=== PATIENT | female | born 1955 | race Caucasian/White ===

== ENCOUNTER 2024-07-26 23:56 | Inpatient (IN) | payer MEDICARE, MEDICAID, SELFPAY ==
--- NOTE | ~2024-07-26 | CT_ITS ---
Clinical Indication: Shortness of breath, atrial fibrillation CT Scan of the Chest with Contrast: Technique: Contiguous sections were acquired throughout the chest after intravenous administration of 100 cc of Omnipaque 350. Dose reduction technique was used on this scan by utilizing automated expos ure control and iterative reconstruction technique. The dose-length product (DLP) was 478.28 mGy-cm. Findings: There is no evidence of any significant mediastinal, hilar or axillary lymphadenopathy. There is no f illing defect in the pulmonary arterial tree to suggest pulmonary embolus. There is no evidence of ao rtic dissection or aneurysm. No pericardial effusion. There are moderate bilateral pleural effusions. There is minimal bibasilar atelectasis. There is diff use interstitial thickening, compatible with interstitial pulmonary edema.. Images through the upper abdomen reveal no abnormalities. Impression: No evidence of pulmonary embolus, aortic dissection, or aortic aneurysm. Moderate bilateral pleural effusions with diffuse interstitial pulmonary edema. Reviewed, dictated and finalized at [facility]. Impression: No evidence of pulmonary embolus, aortic dissection, or aortic aneurysm. Moderate bilateral pleural effusions with diffuse interstitial pulmonary edema.
--- NOTE | ~2024-07-26 | XR_ITS ---
Portable chest x-ray Comparison: None Clinical History: Shortness of breath Findings: Probable mild central congestive change and mild interstitial edema. Small bilateral pleur al effusions are present. Cardiomediastinal silhouette is prominent. Bones and soft tissues are unre markable. Impression: Small pleural effusions with mild pulmonary edema pattern. Mild cardiomegaly. Reviewed, dictated and finalized at [facility]. Impression: Small pleural effusions with mild pulmonary edema pattern. Mild cardiomegaly.
[2024-07-26 23:51] VITALS: BP 138/87; PULSE 130; RESP 16; TEMP 36.4; O2SAT 97
[2024-07-27] VITALS (33 sets, daily range): BP systolic 108–143; BP diastolic 50–99; PULSE 79–154; RESP 14–26; TEMP 36.5–36.9; O2SAT 93–99; BMI 32.4
--- NOTE | 2024-07-27 | ECG_ITS ---
Test Date: 2024-07-27 00:04:13 Measurements Intervals [place] Rate: 144 P: 0 AK: 0 QRS: -5 QRSD: 97 T: -25 QT: 311 QTc: 482 Interpretive Statements ATRIAL FIBRILLATION WITH RAPID VENTRICULAR RESPONSE NONSPECIFIC ST & T-WAVE ABNORMALITY ABNORMAL RHYTHM ECG No previous ECG available for comparison Electronically Signed On 07-27-2024 12:42:36 CDT by Reggie Hill M.D.
--- NOTE | 2024-07-27 00:15 | ED_ITS ---
HPI - Arrhythmia/Palpitations General Chief Complaint: Arrhythmia/Palpitations <Florina Bella PA-C - Last Filed: 07/27/24 17:14> Stated Complaint: PALPITATIONS, A-FIB W/ RVR, SOB <Florina Bella PA-C - Last Filed: 07/27/24 17:14> Time Seen by Provider: 07/27/24 00:06 <Florina Bella PA-C - Last Filed: 07/27/24 17:14> Source: patient <JULITO Hernandez Last Filed: 07/27/24 17:14> Mode of arrival: ambulatory <JULITO Hernandez Last Filed: 07/27/24 17:14> Limitations: no limitations <Florina Bella PA-C - Last Filed: 07/27/24 17:14> History of Present Illness HPI narrative: This is a 69 year old female that presents to the ER for shortness of breath, lower extremity edema. Reports she has been traveling internationally. She has had worsening lower extremity edema, shortness of breath, feels like she is full of fluid. Reports history of afib. She does currently take a blood thinner. She is not on any rate controlling medications. She denies any chest pain. <Florina Bella PA-C - Last Filed: 07/27/24 17:14> Related Data Home Medications: Home Medications ?Medication ?Instructions ?Recorded ?Confirmed ?Last Taken ?Type Paracetamol/codeine PRN pain 07/27/24 Unknown History apixaban 5 mg tablet (Eliquis) 5 mg PO BID 07/27/24 07/27/24 Unknown History candesartan 16 mg tablet 16 mg PO HS 07/27/24 07/27/24 Unknown History furosemide 40 mg tablet 40 mg PO DAILY PRN swelling 07/27/24 07/27/24 07/26/24 History pantoprazole 40 mg tablet,delayed 40 mg PO QAM 07/27/24 07/27/24 Unknown History release (Protonix) <JULITO Hernandez Last Filed: 07/27/24 17:14> Allergies/Adverse Reactions: Allergies Allergy/AdvReac Type Severity Reaction Status Date / Time Penicillins Allergy Rash Verified 07/27/24 00:28 <Florina Bella PA-C - Last Filed: 07/27/24 17:14> Review of Systems 2 Review of Systems: All systems reviewed & are unremarkable except as noted in HPI and below <Florina Bella PA-C - Last Filed: 07/27/24 17:14> [facility] Past Medical History Medical History: Medical History History of hypertension History of gastroesophageal reflux (GERD) History of atrial fibrillation <Florina Bella PA-C - Last Filed: 07/27/24 17:14> Social History Social History: Social History Years smoked: 35 Smoking status: Former smoker Alcohol intake: never Substance use: never Substance use type: does not use Do You Feel Safe in your Home?: Yes Lack of Transportation: No Lack of Food: Never True Current Housing: I Have Housing Concerned About Future Housing: No Difficulty Paying Gas/Electric Bills: No Difficulty Paying for Meds: No Currently Unemployed: No Education: Decline to Answer Difficulty w/ Childcare or Family Care: No Spiritual care concerns: No <Florina Bella PA-C - Last Filed: 07/27/24 17:14> Exam 2 Narrative: GENERAL: Well-appearing, well-nourished, and in no acute distress. HEAD: Normocephalic, atraumatic. EYES: PERRLA and EOMI. ENT: Nares clear, no rhinorrhea or epistaxis. Mucous membranes moist. Oropharynx without tonsillar hypertrophy exudate or other lesions. NECK: Supple. No adenopathy or masses. CHEST: No respiratory distress. Rales in the lower lobes. No wheezes or rhonchi HEART: Irregularly irregular. No murmur heard. Normal peripheral pulses. EXTREMITIES: Normal range of motion. Nonpitting edema to the lower extremities SKIN: Warm, dry, no rash. NEURO: No focal deficits. Alert and oriented x3. PSYCH: Normal mood and affect <Florina Bella PA-C - Last Filed: 07/27/24 17:14> Course Course Emergency Course: Patient updated on workup thus far. Care taken over by Dr. Ledesma at shift change <Florina Bella PA-C - Last Filed: 07/27/24 17:14> Vital Signs Vital signs: Vital Signs Temperature 97.5 F L 07/26/24 23:51 Pulse Rate 130 H 07/26/24 23:51 Respiratory Rate 16 07/26/24 23:51 Blood Pressure 138/87 07/26/24 23:51 Pulse Oximetry 97 07/26/24 23:51 Oxygen Delivery Room Air 07/26/24 23:51 Temperature 98 F 07/27/24 16:00 Pulse Rate 106 H 07/27/24 16:00 Respiratory Rate 18 07/27/24 16:00 Blood Pressure 113/83 07/27/24 16:00 Pulse Oximetry 96 07/27/24 16:00 Oxygen Delivery Room Air 07/27/24 11:26 <Florina Bella PA-C - Last Filed: 07/27/24 17:14> Vital Signs Temperature 97.5 F L 07/26/24 23:51 Pulse Rate 130 H 07/26/24 23:51 Respiratory Rate 16 07/26/24 23:51 Blood Pressure 138/87 07/26/24 23:51 Pulse Oximetry 97 07/26/24 23:51 Oxygen Delivery Room Air 07/26/24 23:51 Temperature 98 F 07/27/24 16:00 Pulse Rate 106 H 07/27/24 16:00 Respiratory Rate 18 07/27/24 16:00 Blood Pressure 113/83 07/27/24 16:00 Pulse Oximetry 96 07/27/24 16:00 Oxygen Delivery Room Air 07/27/24 11:26 <Eileen Ledesma MD - Last Filed: 07/27/24 05:42> MDM - Arrhythmia/Palpitations MDM Narrative Medical decision making narrative: Patient signed out to me pending interpretation of CTA. No PE. Findings as below. Patient remains on diltiazem drip and in general has been rate controlled less than 110 intermittently low 120s. Slightly tearful on exam, explaining that she has been in rate controlled asymptomatic afib for years. A lot of stressors recently (terminally ill , best friend recently , twin grandbabies just , etc) but that she had visited her PCP before leaving on her trip and been cleared to travel. Otherwise stable. Patient had been discussed with CYRUS Olivier Juárez prior to CT result. Bed orders for IMU telemetry are placed. <Eileen Ledesma MD - Last Filed: 07/27/24 05:42> Differential Diagnosis Differential diagnosis: Likely palpitations, sinus tachycardia, artial fibrillation, artial flutter and other (PE, CHF) <Florina Bella PA-C - Last Filed: 07/27/24 17:14> Lab Data Attestation: I reviewed the patient's lab results. <Florina Bella PA-C - Last Filed: 07/27/24 17:14> Result diagrams: 07/27/24 00:08 07/27/24 00:09 <Florina Bella PA-C - Last Filed: 07/27/24 17:14> Labs: Lab Results 07/27/24 07/27/24 07/27/24 Range/Units 00:08 00:09 00:42 WBC 8.1 (4.5-10.0) K/mm3 RBC 4.04 L (4.2-5.4) M/mm3 Hgb 10.7 L (12.0-15.0) g/dL Hct 34.1 L (37.0-47.0) % MCV 84.4 (80-100) fl MCH 26.5 (26-34) pg MCHC 31.4 L (32-36) g/dl RDW 15.2 H (11.5-14.5) % Plt Count 262 (150-375) k/mm3 MPV 11.2 H (7.4-10.4) fl Immature Gran % (Auto) 1.0 H (0-0.5) % Neut % (Auto) 60.4 (45.5-73.1) % Lymph % (Auto) 29.9 (18.3-44.2) % [place] % (Auto) 6.5 (2.6-8.5) % Eos % (Auto) 1.7 (0-4.4) % Baso % (Auto) 0.5 (0.2-1.2) % Lymph # (Auto) 2.41 (0.9-3.2) K/mm3 [place] # (Auto) 0.5 (0.1-0.6) K/mm3 Eos # (Auto) 0.1 (0-0.3) K/mm3 Baso # (Auto) 0.0 (0.0-0.1) K/mm3 Abs Immat Gran (auto) 0.08 H (0.00-0.031) K/mm3 Absolute Neuts (auto) 4.9 (1.3-6.7) K/mm3 Absolute Nucleated RBC 0.000 (0.0-0.012) K/mm3 Nucleated RBC % 0.0 (0.0-0.2) % PT 16.3 H (11.1-14.7) Seconds INR 1.3 APTT 34.3 (22.3-36.8) Seconds Sodium 141 (137-145) mmol/L Potassium 3.4 (3.4-5.0) mmol/L Chloride 108 H (98-107) mmol/L Carbon Dioxide 24 (22-30) mmol/L Anion Gap 9 (4-12) mmol/L BUN 20 H (7-17) mg/dL Creatinine 0.84 (0.7-1.0) mg/dL Estim Creat Clear Calc 67 ml/min Estimated GFR > 60 (59 - ) Glucose 122 H (65-110) mg/dL Calcium 8.9 (8.4-10.2) mg/dL Total Bilirubin 0.6 (0.2-1.3) mg/dL AST 34 (14-36) U/L ALT 21 (6-35) U/L Alkaline Phosphatase 81 (38-126) U/L NT-Pro-B Natriuret Pep 8160 H (19.9-100) pg/mL Total Protein 7.0 (6.3-8.2) g/dL Albumin 4.1 (3.5-5.1) g/dL <Florina Bella PA-C - Last Filed: 07/27/24 17:14> Lab Results 07/27/24 07/27/24 07/27/24 Range/Units 00:08 00:09 00:42 WBC 8.1 (4.5-10.0) K/mm3 RBC 4.04 L (4.2-5.4) M/mm3 Hgb 10.7 L (12.0-15.0) g/dL Hct 34.1 L (37.0-47.0) % MCV 84.4 (80-100) fl MCH 26.5 (26-34) pg MCHC 31.4 L (32-36) g/dl RDW 15.2 H (11.5-14.5) % Plt Count 262 (150-375) k/mm3 MPV 11.2 H (7.4-10.4) fl Immature Gran % (Auto) 1.0 H (0-0.5) % Neut % (Auto) 60.4 (45.5-73.1) % Lymph % (Auto) 29.9 (18.3-44.2) % [place] % (Auto) 6.5 (2.6-8.5) % Eos % (Auto) 1.7 (0-4.4) % Baso % (Auto) 0.5 (0.2-1.2) % Lymph # (Auto) 2.41 (0.9-3.2) K/mm3 [place] # (Auto) 0.5 (0.1-0.6) K/mm3 Eos # (Auto) 0.1 (0-0.3) K/mm3 Baso # (Auto) 0.0 (0.0-0.1) K/mm3 Abs Immat Gran (auto) 0.08 H (0.00-0.031) K/mm3 Absolute Neuts (auto) 4.9 (1.3-6.7) K/mm3 Absolute Nucleated RBC 0.000 (0.0-0.012) K/mm3 Nucleated RBC % 0.0 (0.0-0.2) % PT 16.3 H (11.1-14.7) Seconds INR 1.3 APTT 34.3 (22.3-36.8) Seconds Sodium 141 (137-145) mmol/L Potassium 3.4 (3.4-5.0) mmol/L Chloride 108 H (98-107) mmol/L Carbon Dioxide 24 (22-30) mmol/L Anion Gap 9 (4-12) mmol/L BUN 20 H (7-17) mg/dL Creatinine 0.84 (0.7-1.0) mg/dL Estim Creat Clear Calc 67 ml/min Estimated GFR > 60 (59 - ) Glucose 122 H (65-110) mg/dL Calcium 8.9 (8.4-10.2) mg/dL Total Bilirubin 0.6 (0.2-1.3) mg/dL AST 34 (14-36) U/L ALT 21 (6-35) U/L Alkaline Phosphatase 81 (38-126) U/L NT-Pro-B Natriuret Pep 8160 H (19.9-100) pg/mL Total Protein 7.0 (6.3-8.2) g/dL Albumin 4.1 (3.5-5.1) g/dL <Eileen Ledesma MD - Last Filed: 07/27/24 05:42> Imaging Data Radiologist's impression: CTA chest PE: No pulmonary embolus. No aortic aneurysm or dissection. There is dilation of the pulmonary arteries concerning for pulmonary hypertension. Additionally, there is ectasia of the ascending or DA measuring 3.7 cm. Diffuse intraseptal thickening is concerning for pulmonary edema. Moderate pleural effusions. Cardiomegaly. No pathologically enlarged lymph nodes. No fracture. Small hiatal hernia. No incidental findings. <Florina Bella PA-C - Last Filed: 07/27/24 17:14> No pulmonary embolus. No aortic aneurysm or dissection. There is dilation of the pulmonary arteries concerning for pulmonary hypertension. Additionally, there is ectasia of the ascending or DA measuring 3.7 cm. Diffuse intraseptal thickening is concerning for pulmonary edema. Moderate pleural effusions. Cardiomegaly. No pathologically enlarged lymph nodes. No fracture. Small hiatal hernia. No incidental findings. <Eileen Ledesma MD - Last Filed: 07/27/24 05:42> ECG Data EKG #1: ECG completion date: 07/27/24 <Florina Bella PA-C - Last Filed: 07/27/24 17:14> EKG Interpretation: atrial fibrillation (with RVR) <JULITO Hernandez Last Filed: 07/27/24 17:14> Critical Care Time Critical Care Time Critical Care Time: Yes <Florina Bella PA-C - Last Filed: 07/27/24 17:14> Total Critical Care Time: 35 <Florina Bella PA-C - Last Filed: 07/27/24 17:14> Discharge Plan Discharge Clinical Impression: Atrial fibrillation with rapid ventricular response <Florina eBlla PA-C - Last Filed: 07/27/24 17:14> Patient Disposition: Still a Patient <Florina Bella PA-C - Last Filed: 07/27/24 17:14> Condition: Stable <Florina Bella PA-C - Last Filed: 07/27/24 17:14> Time of Disposition: 05:42 <Florina Bella PA-C - Last Filed: 07/27/24 17:14> 05:42 <Eileen Ledesma MD - Last Filed: 07/27/24 05:42>
[2024-07-27 00:24] LABS: Alanine Aminotransferase 21 U/L (6-35); Albumin Level 4.1 g/dL (3.5-5.1); Alkaline Phosphatase 81 U/L (38-126); Anion Gap 9 mmol/L (4-12); Aspartate Amino Transferase 34 U/L (14-36); Bilirubin,Total 0.6 mg/dL (0.2-1.3); Blood Urea Nitrogen 20 mg/dL (7-17); Calcium 8.9 mg/dL (8.4-10.2); Carbon Dioxide 24 mmol/L (22-30); Chloride 108 mmol/L (98-107); Estimated CRCL calculation 67 ml/min; Estimated Glomerular Filt Rate > 60; Glucose 122 mg/dL (65-110); Potassium 3.4 mmol/L (3.4-5.0); Sodium 141 mmol/L (137-145)
[2024-07-27] MEDS: FUROSEMIDE INJ 40 MG/4 ML VIAL IV PUSH (00:29)
[2024-07-27 00:33] LABS: Basophils Percent Auto 0.5 % (0.2-1.2); Eosinophils Absolute Auto 0.1 K/mm3 (0-0.3); Eosinophils Percent Auto 1.7 % (0-4.4); Hematocrit 34.1 % (37.0-47.0); Hemoglobin 10.7 g/dL (12.0-15.0); Immature Granulocyte Absolute 0.08 K/mm3 (0.00-0.031); Lymphocytes Absolute Auto 2.41 K/mm3 (0.9-3.2); Lymphocytes Percent Auto 29.9 % (18.3-44.2); Mean Corpuscular HGB Conc 31.4 g/dl (32-36); Mean Corpuscular Hemoglobin 26.5 pg (26-34); Mean Corpuscular Volume 84.4 fl (80-100); Mean Platelet Volume 11.2 fl (7.4-10.4); Monocytes Absolute Auto 0.5 K/mm3 (0.1-0.6); Monocytes Percent Auto 6.5 % (2.6-8.5); Neutrophils Absolute Auto 4.9 K/mm3 (1.3-6.7); Neutrophils Percent Auto 60.4 % (45.5-73.1); Platelet Count Result 262 k/mm3 (150-375); Red Blood Count 4.04 M/mm3 (4.2-5.4); Red Cell Distribution Width 15.2 % (11.5-14.5); White Blood Count 8.1 K/mm3 (4.5-10.0)
[2024-07-27] MEDS: dilTIAZem HCl INJ 25 MG/5 ML VIAL 10 MG IV PUSH ×2 (00:34→02:02)
[2024-07-27 00:36] LABS: NT Pro B Type Natriuretic Pept 8160 pg/mL (19.9-100)
[2024-07-27] MEDS: dilTIAZem 100 MG/100 ML 100 MG/100 ML BAG IV CONT (00:39)
[2024-07-27] MEDS: Please add drug allergy info to patient profile. 1 EACH XX (00:41)
[2024-07-27 01:04] LABS: INR 1.3; Prothrombin Time 16.3 Seconds (11.1-14.7)
[2024-07-27 01:05] LABS: Partial Thromboplastin Time 34.3 Seconds (22.3-36.8)
--- NOTE | 2024-07-27 06:58 | ADMGEN ---
This patient, Leanna Tillman, was admitted to IMU Room 205-01. Patient/family oriented to hospital policies and general routines including ID bracelet, bed and alarms, visiting hours, pain management, procedures, bathroom and other care routines, personal items, smoking policy, room service/diet, and visiting hours. Information on how to activate the Rapid Response Team has been discussed. Patient/Family are encouraged to report perceived risks to care and to ask questions if they do not understand what they are told or what they should do.
--- NOTE | 2024-07-27 08:14 | P.HP_ITS ---
H&P: HPI History of Present Illness Date/Time: 07/27/24 08:14 Chief Complaint: Palpitation Narrative: 69-year-old female with a past medical history of hypertension, GERD, AFib presented to ER due to shortness of breath, lower extremity edema. As per ED records patient was traveling internationally and experienced worsening of lower extremity edema, shortness of breath. Pertinent ED labs: WBC 8.1, hemoglobin 10.7, MCV 84.4, platelet 262, sodium 141, potassium 3.4, chloride 108, creatinine 0.8, glucose 122 BNP 8160 TSH pending Patient is admitted in the setting of AFib with RVR. Ordered TSH and echoc ardiogram. Cardiology consulted and appreciate recommendation. Patient lives in [place] and was visiting [place]. While driving from [place] patient felt her ankles were swollen and heart was racing for which she immediately seek care in ED. Patient reports in [place] she had multiple cardioversion. She reports recently had Echocardiogram in March 2024 and her PCP reported it was normal. Lately she endorse lot of stress due to illness, grand babies and closed friend . Review of Systems Review of Systems: All systems reviewed & are unremarkable except as noted in HPI and below PMFSH Past Medical History Medical History History of hypertension History of gastroesophageal reflux (GERD) History of atrial fibrillation Social History Social History Years smoked: 35 Smoking status: Former smoker Alcohol intake: never Substance use: never Substance use type: does not use Do You Feel Safe in your Home?: Yes Lack of Transportation: No Lack of Food: Never True Current Housing: I Have Housing Concerned About Future Housing: No Difficulty Paying Gas/Electric Bills: No Difficulty Paying for Meds: No Currently Unemployed: No Education: Decline to Answer Difficulty w/ Childcare or Family Care: No Spiritual care concerns: No Meds Home Medications and Allergies Home Medications ?Medication ?Instructions ?Recorded ?Confirmed ?Type Paracetamol/codeine PRN pain 07/27/24 History apixaban 5 mg tablet (Eliquis) 5 mg PO BID 07/27/24 07/27/24 History candesartan 16 mg tablet 16 mg PO HS 07/27/24 07/27/24 History furosemide 40 mg tablet 40 mg PO DAILY PRN swelling 07/27/24 07/27/24 History pantoprazole 40 mg tablet,delayed 40 mg PO QAM 07/27/24 07/27/24 History release (Protonix) Allergies Allergy/AdvReac Type Severity Reaction Status Date / Time Penicillins Allergy Rash Verified 07/27/24 00:28 Vital Signs Vital Signs - 24 hr 07/26/24 23:51 07/27/24 00:02 07/27/24 00:03 Temperature 97.5 F L Pulse Rate 130 H 154 H Respiratory Rate 16 Blood Pressure 138/87 Pulse Oximetry 97 98 Oxygen Delivery Room Air Room Air 07/27/24 00:04 07/27/24 00:39 07/27/24 01:00 Temperature Pulse Rate 130 H 101 H 109 H Respiratory Rate 22 H 26 H Blood Pressure 142/99 H 143/99 H Pulse Oximetry 95 95 Oxygen Delivery 07/27/24 01:21 07/27/24 01:25 07/27/24 01:49 Temperature Pulse Rate 121 H 104 H 115 H Respiratory Rate 19 20 Blood Pressure 134/87 134/87 108/62 Pulse Oximetry 94 Oxygen Delivery 07/27/24 02:01 07/27/24 02:19 07/27/24 03:03 Temperature Pulse Rate 108 H 117 H 106 H Respiratory Rate 23 H 16 Blood Pressure 134/81 134/81 141/86 H Pulse Oximetry 96 96 Oxygen Delivery 07/27/24 03:31 07/27/24 03:35 07/27/24 04:01 Temperature Pulse Rate 85 107 H Respiratory Rate 22 H 18 Blood Pressure 141/75 H 139/98 H Pulse Oximetry 95 95 95 Oxygen Delivery Room Air 07/27/24 04:31 07/27/24 04:47 07/27/24 05:03 Temperature Pulse Rate 105 H 97 110 H Respiratory Rate 23 H 21 H 14 Blood Pressure 116/75 Pulse Oximetry 96 94 Oxygen Delivery 07/27/24 05:24 07/27/24 05:31 07/27/24 06:42 Temperature 97.7 F Pulse Rate 95 98 Respiratory Rate 25 H Blood Pressure 113/75 Pulse Oximetry 93 Oxygen Delivery 07/27/24 07:34 Temperature 98.2 F Pulse Rate 87 Respiratory Rate 14 Blood Pressure 126/80 Pulse Oximetry 94 Oxygen Delivery Exam Narrative: GENERAL: Well-appearing, well-nourished, and in no acute distress. HEAD: Normocephalic, atraumatic. EYES: PERRLA and EOMI. ENT: Nares clear, no rhinorrhea or epistaxis. Mucous membranes moist. Oropharynx without tonsillar hypertrophy exudate or other lesions. NECK: Supple. No adenopathy or masses. CHEST: No respiratory distress. Rales in the lower lobes. No wheezes or rhonchi HEART: Irregularly irregular. No murmur heard. Normal peripheral pulses. EXTREMITIES: Normal range of motion. Nonpitting edema to the lower extremities SKIN: Warm, dry, no rash. NEURO: No focal deficits. Alert and oriented x3. PSYCH: Normal mood and affect Const: General: comfortable, no acute distress, alert and awake Orientation/consciousness: patient oriented x3 HENMT: Head: normal to inspection Eyes: General: appearance normal, both eyes and all related structures Pupi ls: Equal, round and reactive pupils present Neck: Neck: normal visual inspection, supple and no JVD Carotids: normal carotid upstroke Resp: Effort & Inspection: normal respiratory effort Auscultation: rales Cardio: Rate: regular rate Rhythm: abnormal rhythm irregularly irregular Heart sounds: S1 normal heart sound present, S2 normal heart sound present and no murmurs GI: Auscultation: normal bowel sounds Skin: General skin exam: normal color Neuro: General: patient oriented x3 Cranial nerves: Yes Equal, round and reactive pupils present Extrem: General: normal to inspection Psych: Appearance: grossly normal Mental Status: mental status grossly normal H&P: Results Labs Labs: Short CBC 07/27/24 Range/Units 00:08 WBC 8.1 (4.5-10.0) K/mm3 Hgb 10.7 L (12.0-15.0) g/dL Hct 34.1 L (37.0-47.0) % Plt Count 262 (150-375) k/mm3 BMP 07/27/24 00:09 Sodium 141 Potassium 3.4 Chloride 108 H Carbon Dioxide 24 BUN 20 H Creatinine 0.84 Glucose 122 H Calcium 8.9 Liver Function 07/27/24 Range/Units 00:09 Total Bilirubin 0.6 (0.2-1.3) mg/dL AST 34 (14-36) U/L ALT 21 (6-35) U/L Alkaline Phosphatase 81 (38-126) U/L Albumin 4.1 (3.5-5.1) g/dL Assessment and Plan Assessment and plan (1) Atrial fibrillation with rapid ventricular response: Code(s): I48.91 - Unspecified atrial fibrillation Status: Acute (2) History of hypertension: Code(s): Z86.79 - Personal history of other diseases of the circulatory system Status: Acute (3) History of gastroesophageal reflux (GERD): Code(s): Z87.19 - Personal history of other diseases of the digestive system Status: Acute Plan A.Fibrillation Order TSH [id number] 3 for now (Age,sex,HTN) Order HbA1c and Lipid Panel Ordered echocardiogram S/P diltiazem drip Started Diltiazem 20mg PO QD Continue Eliquis 5 mg PO BID DVT prophylaxis : Eliquis 5mg PO BID Hospitalist MIPS Advance Care Plan I have confirmed that the patient's Advanced Care Plan is present, code status is documented, or surrogate decision maker is listed in patient medical record.: Yes Medication Reconciliation I have utilized all available resources to obtain, update and review the patients current medications (includes all prescriptions, OTC, herbals, cannabis, and nutritional supplements).: Yes
--- NOTE | 2024-07-27 10:14 | P.CONCA_ITS ---
Assessment and Plan Assessment and plan (1) Atrial fibrillation with rapid ventricular response: Code(s): I48.91 - Unspecified atrial fibrillation Status: Acute Assessment and Plan: Longstanding history of paroxysmal atrial fibrillation presenting with atrial fibrillation with rapid ventricular response. * She wishes to pursue rate control strategy * Will shift from IV to p.o diltiazem * Continue apixaban * No need for echo, had one performed earlier this year with normal EF. * Can discharge if heart rate remains controlled on p.o. diltiazem. History of Present Illness History of Present Illness Consult date/time: 07/27/24 10:14 Requesting physician: Lee Guerrero MD Consult reason: atrial fibrillation Reason For Visit: Afib RVR on Dilt GTT Narrative: Leanna Tillman is a 69 year old female with history of atrial fibrillation since 1999. She comes to the hospital because of shortness of breath and she had noticed on her apple watch that her heart rate was elevated. She reports having 3 cardioversions in the past and was on sotalol therapy for a period of time but discontinued it because of extreme fatigue. It sounds like since that time she has had rate controlled paroxysmal atrial fibrillation. She is in the [place] traveling from [place] [facility] and tells me she has been under a lot of stress recently. In the emergency room she was found to be in atrial fibrillation with rapid ventricular response. She was placed on a diltiazem drip and her rate is now well controlled. Her breathing is better after receiving lasix. Review of Systems 2 Review of Systems: All systems reviewed & are unremarkable except as noted in HPI and below PMFSH Past Medical History Medical History History of hypertension History of gastroesophageal reflux (GERD) History of atrial fibrillation Social History Social History Years smoked: 35 Smoking status: Former smoker Alcohol intake: never Substance use: never Substance use type: does not use Do You Feel Safe in your Home?: Yes Lack of Transportation: No Lack of Food: Never True Current Housing: I Have Housing Concerned About Future Housing: No Difficulty Paying Gas/Electric Bills: No Difficulty Paying for Meds: No Currently Unemployed: No Education: Decline to Answer Difficulty w/ Childcare or Family Care: No Spiritual care concerns: No Meds Home Medications and Allergies Home Medications ?Medication ?Instructions ?Recorded ?Confirmed ?Type Paracetamol/codeine PRN pain 07/27/24 History apixaban 5 mg tablet (Eliquis) 5 mg PO BID 07/27/24 07/27/24 History candesartan 16 mg tablet 16 mg PO HS 07/27/24 07/27/24 History furosemide 40 mg tablet 40 mg PO DAILY PRN swelling 07/27/24 07/27/24 History pantoprazole 40 mg tablet,delayed 40 mg PO QAM 07/27/24 07/27/24 History release (Protonix) Allergies Allergy/AdvReac Type Severity Reaction Status Date / Time Penicillins Allergy Rash Verified 07/27/24 00:28 Vital Signs Vital Signs - 24 hr 07/26/24 23:51 07/27/24 00:02 07/27/24 00:03 Temperature 36.4 C L Pulse Rate 130 H 154 H Respiratory Rate 16 Blood Pressure 138/87 Pulse Oximetry 97 98 Oxygen Delivery Room Air Room Air 07/27/24 00:04 07/27/24 00:39 07/27/24 01:00 Temperature Pulse Rate 130 H 101 H 109 H Respiratory Rate 22 H 26 H Blood Pressure 142/99 H 143/99 H Pulse Oximetry 95 95 Oxygen Delivery 07/27/24 01:21 07/27/24 01:25 07/27/24 01:49 Temperature Pulse Rate 121 H 104 H 115 H Respiratory Rate 19 20 Blood Pressure 134/87 134/87 108/62 Pulse Oximetry 94 Oxygen Delivery 07/27/24 02:01 07/27/24 02:19 07/27/24 03:03 Temperature Pulse Rate 108 H 117 H 106 H Respiratory Rate 23 H 16 Blood Pressure 134/81 134/81 141/86 H Pulse Oximetry 96 96 Oxygen Delivery 07/27/24 03:31 07/27/24 03:35 07/27/24 04:01 Temperature Pulse Rate 85 107 H Respiratory Rate 22 H 18 Blood Pressure 141/75 H 139/98 H Pulse Oximetry 95 95 95 Oxygen Delivery Room Air 07/27/24 04:31 07/27/24 04:47 07/27/24 05:03 Temperature Pulse Rate 105 H 97 110 H Respiratory Rate 23 H 21 H 14 Blood Pressure 116/75 Pulse Oximetry 96 94 Oxygen Delivery 07/27/24 05:24 07/27/24 05:31 07/27/24 06:42 Temperature 36.5 C Pulse Rate 95 98 Respiratory Rate 25 H Blood Pressure 113/75 Pulse Oximetry 93 Oxygen Delivery 07/27/24 07:34 07/27/24 08:00 07/27/24 09:46 Temperature 36.8 C Pulse Rate 87 90 85 Respiratory Rate 14 Blood Pressure 126/80 126/74 109/54 L Pulse Oximetry 94 95 Oxygen Delivery Exam 2 Const: General: comfortable, no acute distress, alert and awake O rientation/consciousness: patient oriented x3 HENMT: Head: normal to inspection Eyes: General: appearance normal, both eyes and all related structures P upils: Equal, round and reactive pupils present Neck: Neck: normal visual inspection, supple and no JVD Carotids: normal carotid upstroke Resp: Effort & Inspection: normal respiratory effort Auscultation: rales Cardio: Rate: regular rate Rhythm: abnormal rhythm irregularly irregular Heart sounds: S1 normal heart sound present, S2 normal heart sound present and no murmurs GI: Auscultation: normal bowel sounds Skin: General skin exam: normal color Neuro: General: patient oriented x3 Cranial nerves: Yes Equal, round and reactive pupils present Extrem: General: normal to inspection Psych: Appearance: grossly normal Mental Status: mental status grossly normal Results Labs and Meds 07/27/24 00:08 07/27/24 00:09 Lab results: Cardiac Enzymes 07/27/24 Range/Units 00:09 AST 34 (14-36) U/L Coagulation 07/27/24 Range/Units 00:42 PT 16.3 H (11.1-14.7) Seconds APTT 34.3 (22.3-36.8) Seconds CBC 07/27/24 Range/Units 00:08 WBC 8.1 (4.5-10.0) K/mm3 RBC 4.04 L (4.2-5.4) M/mm3 Hgb 10.7 L (12.0-15.0) g/dL Hct 34.1 L (37.0-47.0) % Plt Count 262 (150-375) k/mm3 Lymph # (Auto) 2.41 (0.9-3.2) K/mm3 Villalba # (Auto) 0.5 (0.1-0.6) K/mm3 Eos # (Auto) 0.1 (0-0.3) K/mm3 Baso # (Auto) 0.0 (0.0-0.1) K/mm3 Comprehensive Metabolic Panel 07/27/24 Range/Units 00:09 Sodium 141 (137-145) mmol/L Potassium 3.4 (3.4-5.0) mmol/L Chloride 108 H (98-107) mmol/L Carbon Dioxide 24 (22-30) mmol/L BUN 20 H (7-17) mg/dL Creatinine 0.84 (0.7-1.0) mg/dL Glucose 122 H (65-110) mg/dL Calcium 8.9 (8.4-10.2) mg/dL AST 34 (14-36) U/L ALT 21 (6-35) U/L Alkaline Phosphatase 81 (38-126) U/L Total Protein 7.0 (6.3-8.2) g/dL Albumin 4.1 (3.5-5.1) g/dL Intake and Output 07/26/24 07/27/24 07/27/24 23:59 07:59 15:59 Intake Total 10.8 56.8 Output Total 900 Balance -889.2 56.8 Intake: IV 10.8 56.8 dilTIAZem 100 MG/100 ML 100 mg 10.8 56.8 In 100 ml @ 5 MG/HR 5 mls/hr IV CONT .Q20H STA Rx#:[id number] Output: Urine 800 Catheter Urine 100 External/Condom 100 Other: # Unmeasured Voids 1 # Urine Diapers 1 Patient Weight 07/27/24 23:59 Weight 94 kg
[2024-07-27 10:38] LABS: Thyroid Stimulating Hormone Reflex 0.828 uIU/mL (0.465-4.68)
[2024-07-27] MEDS: FUROSEMIDE INJ 40 MG/4 ML VIAL 20 MG IV PUSH (12:02)
[2024-07-27] MEDS: dilTIAZem HCL CD 240 MG CAP.24HR PO (12:07)
[2024-07-27] MEDS: POTASSIUM CHLORIDE 20 MEQ PACKET (FOR LIQUID) 40 MEQ PO (17:07)
[2024-07-27] MEDS: APIXABAN 5 MG TABLET PO (20:37)
[2024-07-28] VITALS (19 sets, daily range): BP systolic 115–122; BP diastolic 63–81; PULSE 76–165; RESP 12–20; TEMP 36.7–37.1; O2SAT 87–100
[2024-07-28 04:50] LABS: Hematocrit 33.5 % (37.0-47.0); Hemoglobin 10.6 g/dL (12.0-15.0); Mean Corpuscular HGB Conc 31.6 g/dl (32-36); Mean Corpuscular Hemoglobin 26.9 pg (26-34); Mean Platelet Volume 11.2 fl (7.4-10.4); Platelet Count Result 249 k/mm3 (150-375); Red Blood Count 3.94 M/mm3 (4.2-5.4); Red Cell Distribution Width 15.1 % (11.5-14.5); White Blood Count 6.5 K/mm3 (4.5-10.0)
[2024-07-28 05:06] LABS: Alanine Aminotransferase 18 U/L (6-35); Albumin Level 3.6 g/dL (3.5-5.1); Alkaline Phosphatase 63 U/L (38-126); Anion Gap 6 mmol/L (4-12); Aspartate Amino Transferase 31 U/L (14-36); Bilirubin,Total 0.8 mg/dL (0.2-1.3); Blood Urea Nitrogen 16 mg/dL (7-17); Calcium 8.6 mg/dL (8.4-10.2); Carbon Dioxide 29 mmol/L (22-30); Chloride 105 mmol/L (98-107); Estimated CRCL calculation 73 ml/min; Estimated Glomerular Filt Rate > 60; Glucose 90 mg/dL (65-110); Potassium 3.2 mmol/L (3.4-5.0); Sodium 140 mmol/L (137-145)
--- NOTE | 2024-07-28 07:35 | P.DS_ITS ---
DS: Admitting Diagnosis Discharge Date 0 07/29/2024 Admitting Diagnosis palpitation DS: Discharge Diagnosis Discharge Diagnosis (1) Atrial fibrillation with rapid ventricular response: Code(s): I48.91 - Unspecified atrial fibrillation Status: Acute (2) History of hypertension: Code(s): Z86.79 - Personal history of other diseases of the circulatory system Status: Acute (3) History of gastroesophageal reflux (GERD): Code(s): Z87.19 - Personal history of other diseases of the digestive system Status: Acute Plan A.Fibrillation Normal TSH [id number] 3 for now (Age,sex,HTN) Order HbA1c and Lipid Panel Ordered echocardiogram S/P diltiazem drip Started Diltiazem 20mg PO QD Continue Eliquis 5 mg PO BID DVT prophylaxis : Eliquis 5mg PO BID DS: Summary Hospital Course Hospital Course: 69-year-old female with a past medical history of hypertension, GERD, AFib presented to ER due to shortness of breath, lower extremity edema. As per ED records patient was traveling internationally and experienced worsening of lower extremity edema, shortness of breath. Pertinent ED labs: WBC 8.1, hemoglobin 10.7, MCV 84.4, platelet 262, sodium 141, potassium 3.4, chloride 108, creatinine 0.8, glucose 122 BNP 8160 TSH pending Patient is admitted in the setting of AFib with RVR. Ordered TSH and echocardiogram. Cardiology consulted and appreciate recommendation. Patient lives in [place] and was visiting [place]. While driving from [place] patient felt her ankles were swollen and heart was racing for which she immediately seek care in ED. Patient reports, in [place] she had multiple cardioversion. She recently had Echocardiogram in March 2024 and her PCP reported it was normal. Lately she endorses lot of stress due to illness, of her grand babies and close friend . Cardiology was consulted and her Cardizem drip was stopped and patient started on diltiazem 250 mg p.o. q.d.. Patient home medication candesartan will be held and patient can discuss with her PCP and if the blood pressure is high can be continued. Unfortunately yesterday (07/28)her HR was in 130-140's. Cardiology advised to restart the Cardizem drip. Toady her Cardizem drip is stopped and cardiology agrees to discharge with Cardizem 360mg PO Qd and follow up with her original certified optician. On the day of discharge, the patient was seen and examined. Vital signs were stable. Physical exam were stable and labs were reviewed at length. Discharge instructions, medications, and follow-up appointments were discussed with the patient at length and all day questions were answered. ER warnings were given. Status at Discharge Cognitive/behavioral status at discharge: Stable Time Spent with Patient Time attestation: Total time spent providing and/or coordinating discharge services: 45 minute Exam Narrative: GENERAL: Well-appearing, well-nourished, and in no acute distress. HEAD: Normocephalic, atraumatic. EYES: PERRLA and EOMI. ENT: Nares clear, no rhinorrhea or epistaxis. Mucous membranes moist. Oropharynx without tonsillar hypertrophy exudate or other lesions. NECK: Supple. No adenopathy or masses. CHEST: No respiratory distress. Rales in the lower lobes. No wheezes or rhonchi HEART: Irregularly irregular. No murmur heard. Normal peripheral pulses. EXTREMITIES: Normal range of motion. Nonpitting edema to the lower extremities SKIN: Warm, dry, no rash. NEURO: No focal deficits. Alert and oriented x3. PSYCH: Normal mood and affect Const: General: comfortable, no acute distress, alert and awake Orientation/consciousness: patient oriented x3 HENMT: Head: normal to inspection Eyes: General: appearance normal, both eyes and all related structures Pupils: Equal, round and reactive pupils present Neck: Neck: normal visual inspection, supple and no JVD Carotids: normal carotid upstroke Resp: Effort & Inspection: normal respiratory effort Auscultation: rales Cardio: Rate: regular rate Rhythm: abnormal rhythm irregularly irregular Heart sounds: S1 normal heart sound present, S2 normal heart sound present and no murmurs GI: Auscultation: normal bowel sounds Skin: General skin exam: normal color Neuro: General: patient oriented x3 Cranial nerves: Yes Equal, round and reactive pupils present Extrem: General: normal to inspection Psych: Appearance: grossly normal Mental Status: mental status grossly normal DS: Data Data Completed and Pending Labs on day of discharge: Labs from last 24 hours 07/28/24 07/27/24 04:08 07:43 WBC 6.5 RBC 3.94 L Hgb 10.6 L Hct 33.5 L MCV 85.0 MCH 26.9 MCHC 31.6 L RDW 15.1 H Plt Count 249 MPV 11.2 H Sodium 140 Potassium 3.2 L Chloride 105 Carbon Dioxide 29 Anion Gap 6 BUN 16 Creatinine 0.76 Estim Creat Clear Calc 73 Estimated GFR > 60 Glucose 90 Calcium 8.6 Total Bilirubin 0.8 AST 31 ALT 18 Alkaline Phosphatase 63 Total Protein 6.0 L Albumin 3.6 TSH (Reflex) 0.828 Discharge Plan Discharge Attending physician on discharge: Lee Guerrero Consulting providers: Madie Cordoba Discharging Clinician: Lee Guerrero Anticipated Discharge Date/Time: 07/28/24 07:38 Patient Disposition: Home Activity: as tolerated Diet: heart healthy Discharge Instructions: Patient home medication ,candesartan will be held and patient can discuss with her PCP and if the blood pressure is high can be continued. Check blood pressure 1 to 2 times a day. Record and bring into your doctor for review. Call your doctor if your blood pressure is greater than 180/110 or less than 90/45. Walk with cane or other assist device. Take precautions to avoid falls. Rise slowly from a lying or sitting position. Pause before standing or walking. Contact your doctor or call 911 and come to the Emergency Room if you have any type of trauma, lightheadedness with standing or other worrisome symptoms. Avoid NSAIDs (ibuprofen, naproxen, Aleve). Tylenol is safe to take. Follow-up with your primary care provider in 1-2 weeks. Please call for appointment. Follow-up with Cardiology in 2-4 weeks. Please call for an appointment. Thank you for using [facility] for your health care needs. Patient Instructions: Antibiotic Form, Apixaban (By mouth) Patient Language: Guamanian Stand Alone Forms: General Discharge Information Follow-up/Referrals: Madie Cordoba, [employer] [Advanced Practice Nurse] - Discharge Medications: New diltiazem HCl 180 mg Capsule,Ext.Rel 24h Degradable 360 mg PO QAM Qty: 90 0RF furosemide 40 mg Tablet 40 mg PO DAILY PRN (Reason: swelling) 30 Days Qty: 30 0RF Continued furosemide 40 mg tablet 40 mg PO DAILY PRN (Reason: swelling) Eliquis 5 mg tablet 5 mg PO BID pantoprazole [Protonix] 40 mg tablet,delayed release (DR/EC) 40 mg PO QAM Paracetamol/codeine 500 mg PO .Q6hr Patient Comments: Take 1-2 tablets as needed Q6hrs for pain. maximum of 8 tablets daily. Dose is Paracetamol 500mg/Codeine 30 mg per tablet. Held candesartan 16 mg tablet 16 mg PO HS Hold Instructions: Resume on 09/07/24. Please discuss with your cardiology/PCP and can be continued if the blood pressure is high Date of admission: 07/28/24 14:18 Primary Care Provider: PHYSICIAN NOT ON STAFF,NONSTAFF Admitting Provider: Francy De Los Santos Attending physician on admission: Francy De Los Santos Condition: Stable
[2024-07-28] MEDS: dilTIAZem HCL CD 240 MG CAP.24HR PO (09:10)
[2024-07-28] MEDS: PANTOPRAZOLE 40 MG TABLET PO (09:11)
[2024-07-28] MEDS: APIXABAN 5 MG TABLET PO ×2 (09:11→20:55)
--- NOTE | 2024-07-28 12:58 | PC.NURSE ---
This patient, Leanna Tillman, was received from [facility] on 07/28/24 at 1210. Patient/family oriented to unit policies and routines. Head to toe assessment completed and documented in the chart. Call light in reach. Bed low and locked. Will continue to monitor. Humberto Frias RN
--- NOTE | 2024-07-28 14:09 | P.PNIM_ITS ---
Progress Note: A&P Assessment and Plan (1) Atrial fibrillation with rapid ventricular response: Code(s): I48.91 - Unspecified atrial fibrillation Status: Acute (2) History of hypertension: Code(s): Z86.79 - Personal history of other diseases of the circulatory system Status: Acute (3) History of gastroesophageal reflux (GERD): Code(s): Z87.19 - Personal history of other diseases of the digestive system Status: Acute Plan A.Fibrillation Normal TSH [id number] 3 for now (Age,sex,HTN) Order HbA1c and Lipid Panel Ordered echocardiogram Restarted diltiazem drip Started Diltiazem 20mg PO QD Continue Eliquis 5 mg PO BID DVT prophylaxis : Eliquis 5mg PO BID Subjective Date/time seen: 07/28/24 14:09 Interval history: Patient continues to have heart rate in 130 is 140. Advised the patient not to continue road trip and stay in the hospital for another 2-3 days. Patient started on Cardizem drip. Patient agrees with plan. Review of Systems Review of Systems: All systems reviewed & are unremarkable except as noted in HPI and below Exam Narrative: GENERAL: Well-appearing, well-nourished, and in no acute distress. HEAD: Normocephalic, atraumatic. EYES: PERRLA and EOMI. ENT: Nares clear, no rhinorrhea or epistaxis. Mucous membranes moist. Oropharynx without tonsillar hypertrophy exudate or other lesions. NECK: Supple. No adenopathy or masses. CHEST: No respiratory distress. Rales in the lower lobes. No wheezes or rhonchi HEART: Irregularly irregular. No murmur heard. Normal peripheral pulses. EXTREMITIES: Normal range of motion. Nonpitting edema to the lower extremities SKIN: Warm, dry, no rash. NEURO: No focal deficits. Alert and oriented x3. PSYCH: Normal mood and affect Const: General: comfortable, no acute distress, alert and awake Orientation/consciousness: patient oriented x3 HENMT: Head: normal to inspection Eyes: General: appearance normal, both eyes and all related structures Pupils: Equal, round and reactive pupils present Neck: Neck: normal visual inspection, supple and no JVD Carotids: normal carotid upstroke Resp: Effort & Inspection: normal respiratory effort Auscultation: rales Cardio: Rate: regular rate Rhythm: abnormal rhythm irregularly irregular Heart sounds: S1 normal heart sound present, S2 normal heart sound present and no murmurs GI: Auscultation: normal bowel sounds Skin: General skin exam: normal color Neuro: General: patient oriented x3 Cranial nerves: Yes Equal, round and reactive pupils present Extrem: General: normal to inspection Psych: Appearance: grossly normal Mental Status: mental status grossly normal Objective Data Vital Signs Vital Signs: Vital Signs - 24 hr 07/27/24 16:00 07/27/24 16:00 07/27/24 16:00 Temperature 98 F Pulse Rate 105 H 106 H 106 H Respiratory Rate 18 Blood Pressure 113/83 Pulse Oximetry 96 Oxygen Delivery 07/27/24 16:00 07/27/24 18:00 07/27/24 20:00 Temperature Pulse Rate 106 H 95 Respiratory Rate Blood Pressure Pulse Oximetry Oxygen Delivery Room Air 07/27/24 20:00 07/27/24 20:18 07/28/24 00:00 Temperature 98.4 F Pulse Rate 94 105 H 76 Respiratory Rate 17 Blood Pressure 120/75 Pulse Oximetry 99 Oxygen Delivery 07/28/24 04:00 07/28/24 04:49 07/28/24 09:10 Temperature 98.7 F Pulse Rate 80 79 Respiratory Rate 17 Blood Pressure 115/63 Pulse Oximetry 97 Oxygen Delivery Room Air 07/28/24 09:10 07/28/24 12:00 07/28/24 12:23 Temperature 98.0 F Pulse Rate 99 77 Respiratory Rate 20 Blood Pressure 119/81 Pulse Oximetry 99 96 Oxygen Delivery Room Air Intake/Output Intake/Output: Intake & Output 07/25/24 07/26/24 07/27/24 07/28/24 23:59 23:59 23:59 23:59 Intake Total 340.0 570 Output Total 4300 Balance -3960.0 570 Meds/Results Medications: Active Medications Generic Name Dose Route Start Last Admin Trade Name Freq PRN Reason Stop Dose Admin Acetaminophen 650 mg 07/27/24 05:39 Acetaminophen 325 Mg Tablet PO Q4H PRN Mild Pain (1-3) or Fever Apixaban 5 mg 07/27/24 21:00 07/28/24 09:11 Apixaban 5 Mg Tablet PO 5 mg Q12HR AMPARO Administration Diltiazem HCl 240 mg 07/27/24 12:00 07/28/24 09:10 Diltiazem Hcl Cd 240 Mg Cap.24hr PO 240 mg QAM AMPARO Administration Furosemide 40 mg 07/27/24 13:28 Furosemide 40 Mg Tablet PO DAILY PRN swelling Ondansetron HCl 4 mg 07/27/24 05:39 Ondansetron Inj 4 Mg/2 Ml Vial IV PUSH Q4H PRN Nausea Pantoprazole Sodium 40 mg 07/28/24 09:00 07/28/24 09:11 Pantoprazole 40 Mg Tablet PO 40 mg QAM AMPARO Administration Radiology Results: ITS Impressions Chest CTA 07/27/24 05:22 Impression: No evidence of pulmonary embolus, aortic dissection, or aortic aneurysm. Moderate bilateral pleural effusions with diffuse interstitial pulmonary edema. Chest X-Ray 07/27/24 06:21 Impression: Small pleural effusions with mild pulmonary edema pattern. Mild cardiomegaly. Labs Labs: Laboratory Results - last 24 hr 07/28/24 04:08 WBC 6.5 RBC 3.94 L Hgb 10.6 L Hct 33.5 L MCV 85.0 MCH 26.9 MCHC 31.6 L RDW 15.1 H Plt Count 249 MPV 11.2 H Sodium 140 Potassium 3.2 L Chloride 105 Carbon Dioxide 29 Anion Gap 6 BUN 16 Creatinine 0.76 Estim Creat Clear Calc 73 Estimated GFR > 60 Glucose 90 Calcium 8.6 Total Bilirubin 0.8 AST 31 ALT 18 Alkaline Phosphatase 63 Total Protein 6.0 L Albumin 3.6 Hospitalist [facility] Advance Care Plan I have confirmed that the patient's Advanced Care Plan is present, code status is documented, or surrogate decision maker is listed in patient medical record.: Yes Medication Reconciliation I have utilized all available resources to obtain, update and review the patients current medications (includes all prescriptions, OTC, herbals, cannabis, and nutritional supplements).: Yes
[2024-07-28] MEDS: dilTIAZem 100 MG/100 ML 100 MG/100 ML BAG IV CONT (15:00)
--- NOTE | 2024-07-28 16:06 | PM.PNCARD ---
Progress Note: A&P Assessment and Plan (1) Atrial fibrillation with rapid ventricular response: Code(s): I48.91 - Unspecified atrial fibrillation Status: Acute Plan 69-year-old woman with chronic atrial fibrillation on Eliquis new presented with shortness of breath found to have atrial fibrillation with rapid ventricular rates Chronic atrial fibrillation -she has for most early and we have discussed that her initial presentation symptoms of orthopnea could suggest heart failure however she had an echocardiogram performed in March of this year that revealed normal systolic function -she does take Lasix 40 mg p.o. p.r.n. which she needs a new prescription -we have discussed that some indications for ablation therapy would include repeat hospitalizations for heart failure and difficult to control atrial fibrillation -she endorses that she has been taking Eliquis 5 mg p.o. b.i.d. without interruption for at least a year now and has not stopped for any reason -continue Eliquis 5 mg p.o. b.i.d. and will up titrate her diltiazem to 360 mg p.o. daily -I have discussed that should her heart rate decreased below 60 beats per minute, she should take half her dose of diltiazem and should her heart rate falls below 50 beats per minute and she is symptomatic, she should visit the emergency room Hypertension -continue diltiazem 360 mg p.o. daily Gastroesophageal reflux disease -on pantoprazole Likely anticipate discharge tomorrow Subjective Date/time seen: 07/28/24 16:06 Interval history: Shortness of breath has resolved. No orthopnea. No significant lower extremity swelling. States that most of her atrial fibrillation is driven mainly from stress Review of Systems Cardiovascular: Cardiovascular: Reports as per HPI Respiratory: Respiratory: Reports as per HPI Exam Const: General: comfortable HENMT: Mouth: Yes moist mucous membranes Eyes: EOM: EOMs intact bilaterally Neck: Neck: no JVD Resp: Effort & Inspection: normal respiratory effort Auscultation: clear to auscultation bilaterally Cardio: Rate: tachycardic Rhythm: abnormal rhythm Neuro: Speech: normal speech Extrem: General: no pedal edema Objective Data Vital Signs Vital Signs: Vital Signs - 24 hr 07/27/24 18:00 07/27/24 20:00 07/27/24 20:00 Temperature Pulse Rate 95 94 Respiratory Rate Blood Pressure Pulse Oximetry Oxygen Delivery Room Air 07/27/24 20:18 07/28/24 00:00 07/28/24 04:00 Temperature 36.9 C Pulse Rate 105 H 76 80 Respiratory Rate 17 Blood Pressure 120/75 Pulse Oximetry 99 Oxygen Delivery 07/28/24 04:49 07/28/24 09:10 07/28/24 09:10 Temperature 37.1 C Pulse Rate 79 99 Respiratory Rate 17 Blood Pressure 115/63 Pulse Oximetry 97 Oxygen Delivery Room Air 07/28/24 11:00 07/28/24 11:30 07/28/24 12:00 Temperature Pulse Rate 145 H 165 H Respiratory Rate Blood Pressure Pulse Oximetry 99 Oxygen Delivery Room Air 07/28/24 12:00 07/28/24 12:23 07/28/24 15:00 Temperature 36.7 C Pulse Rate 139 H 77 93 Respiratory Rate 20 Blood Pressure 119/81 Pulse Oximetry 96 Oxygen Delivery Intake/Output Intake/Output: Intake & Output 07/25/24 07/26/24 07/27/24 07/28/24 23:59 23:59 23:59 23:59 Intake Total 340.0 570 Output Total 4300 Balance -3960.0 570 Meds/Results Medications: Active Medications Generic Name Dose Route Start Last Admin Trade Name Freq PRN Reason Stop Dose Admin Acetaminophen 650 mg 07/27/24 05:39 Acetaminophen 325 Mg Tablet PO Q4H PRN Mild Pain (1-3) or Fever Apixaban 5 mg 07/27/24 21:00 07/28/24 09:11 Apixaban 5 Mg Tablet PO 5 mg Q12HR AMPARO Administration Furosemide 40 mg 07/27/24 13:28 Furosemide 40 Mg Tablet PO DAILY PRN swelling Ondansetron HCl 4 mg 07/27/24 05:39 Ondansetron Inj 4 Mg/2 Ml Vial IV PUSH Q4H PRN Nausea Pantoprazole Sodium 40 mg 07/28/24 09:00 07/28/24 09:11 Pantoprazole 40 Mg Tablet PO 40 mg QAM AMPARO Administration Radiology Results: ITS Impressions Chest CTA 07/27/24 05:22 Impression: No evidence of pulmonary embolus, aortic dissection, or aortic aneurysm. Moderate bilateral pleural effusions with diffuse interstitial pulmonary edema. Chest X-Ray 07/27/24 06:21 Impression: Small pleural effusions with mild pulmonary edema pattern. Mild cardiomegaly. Labs Labs: Laboratory Results - last hr 07/28/24 04:08 WBC 6.5 RBC 3.94 L Hgb 10.6 L Hct 33.5 L MCV 85.0 MCH 26.9 MCHC 31.6 L RDW 15.1 H Plt Count 249 MPV 11.2 H Sodium 140 Potassium 3.2 L Chloride 105 Carbon Dioxide 29 Anion Gap 6 BUN 16 Creatinine 0.76 Estim Creat Clear Calc 73 Estimated GFR > 60 Glucose 90 Calcium 8.6 Total Bilirubin 0.8 AST 31 ALT 18 Alkaline Phosphatase 63 Total Protein 6.0 L Albumin 3.6
[2024-07-28 16:39] LABS: Hemoglobin A1C 5.1 % (<5.7)
[2024-07-28 16:43] LABS: Cholesterol 153 mg/dL (0-200); HDL Direct 59 mg/dL; Triglycerides 62 mg/dL (<150)
[2024-07-28 16:48] LABS: LDL Cholesterol Direct 65 mg/dL
[2024-07-29] VITALS (7 sets, daily range): BP systolic 114–122; BP diastolic 70–82; PULSE 72–113; RESP 16–18; TEMP 36.6–36.9; O2SAT 97–100
[2024-07-29 04:16] LABS: Hematocrit 34.3 % (37.0-47.0); Hemoglobin 10.6 g/dL (12.0-15.0); Mean Corpuscular HGB Conc 30.9 g/dl (32-36); Mean Corpuscular Hemoglobin 26.8 pg (26-34); Mean Corpuscular Volume 86.6 fl (80-100); Mean Platelet Volume 11.4 fl (7.4-10.4); Platelet Count Result 232 k/mm3 (150-375); Red Blood Count 3.96 M/mm3 (4.2-5.4); Red Cell Distribution Width 15.5 % (11.5-14.5); White Blood Count 7.2 K/mm3 (4.5-10.0)
[2024-07-29 04:33] LABS: Alanine Aminotransferase 17 U/L (6-35); Albumin Level 3.5 g/dL (3.5-5.1); Alkaline Phosphatase 59 U/L (38-126); Anion Gap 4 mmol/L (4-12); Aspartate Amino Transferase 27 U/L (14-36); Bilirubin,Total 0.5 mg/dL (0.2-1.3); Blood Urea Nitrogen 18 mg/dL (7-17); Calcium 8.6 mg/dL (8.4-10.2); Carbon Dioxide 28 mmol/L (22-30); Chloride 107 mmol/L (98-107); Estimated CRCL calculation 72 ml/min; Estimated Glomerular Filt Rate > 60; Glucose 87 mg/dL (65-110); Potassium 3.5 mmol/L (3.4-5.0); Sodium 139 mmol/L (137-145)
[2024-07-29] MEDS: dilTIAZem HCL CD 180 MG CAP.24HR 360 MG PO (09:37)
[2024-07-29] MEDS: PANTOPRAZOLE 40 MG TABLET PO (09:38)
[2024-07-29] MEDS: APIXABAN 5 MG TABLET PO (09:38)
--- NOTE | 2024-07-29 11:18 | PM.PNCARD ---
Progress Note: A&P Assessment and Plan (1) Atrial fibrillation with rapid ventricular response: Code(s): I48.91 - Unspecified atrial fibrillation Status: Acute (2) History of gastroesophageal reflux (GERD): Code(s): Z87.19 - Personal history of other diseases of the digestive system Status: Acute (3) History of hypertension: Code(s): Z86.79 - Personal history of other diseases of the circulatory system Status: Acute Plan 69-year-old woman with chronic atrial fibrillation on Eliquis new presented with shortness of breath found to have atrial fibrillation with rapid ventricular rates Chronic atrial fibrillation -we have discussed that some indications for ablation therapy would include repeat hospitalizations for heart failure and difficult to control atrial fibrillation -she endorses that she has been taking Eliquis 5 mg p.o. b.i.d. without interruption for at least a year now and has not stopped for any reason; continue eliquis 5mg PO BID and cardizem 360mg PO daily -I have discussed that should her heart rate decreased below 60 beats per minute, she should take half her dose of diltiazem and should her heart rate falls below 50 beats per minute and she is symptomatic, she should stop the diltiazem and visit the emergency room -we have discussed that her initial presentation symptoms of orthopnea could suggest heart failure however she had an echocardiogram performed in March of this year that revealed normal systolic function -she does take Lasix 40 mg p.o. p.r.n. which she needs a new prescription Hypertension -continue diltiazem 360 mg p.o. daily Gastroesophageal reflux disease -on pantoprazole patient will need a script for diltiazem 360mg PO daily and lasix 40mg PO PRN. likely should send scripts to nearby [facility] prior to her discharge. no further inpatient cardiac workup warranted. patient can be discharged from cardiac perspective Subjective Date/time seen: 07/29/24 11:18 Interval history: Feels very well today Review of Systems Cardiovascular: Cardiovascular: Reports as per HPI Respiratory: Respiratory: Reports as per HPI Exam Const: General: comfortable HENMT: Mouth: Yes moist mucous membranes Eyes: EOM: EOMs intact bilaterally Neck: Neck: no JVD Resp: Effort & Inspection: normal respiratory effort Auscultation: clear to auscultation bilaterally Cardio: Rate: regular rate Rhythm: abnormal rhythm Extrem: General: pedal edema Other: Very minimal pedal edema Objective Data Vital Signs Vital Signs: Vital Signs - 24 hr 07/28/24 11:30 07/28/24 12:00 07/28/24 12:00 Temperature Pulse Rate 165 H 139 H Respiratory Rate Blood Pressure Pulse Oximetry 99 Oxygen Delivery Room Air Fraction of Inspired Oxygen 07/28/24 12:23 07/28/24 14:00 07/28/24 15:00 Temperature 36.7 C Pulse Rate 77 102 H 93 Respiratory Rate 20 Blood Pressure 119/81 Pulse Oximetry 96 Oxygen Delivery Fraction of Inspired Oxygen 07/28/24 16:00 07/28/24 16:00 07/28/24 16:30 Temperature 36.9 C Pulse Rate 98 92 Respiratory Rate 12 Blood Pressure 122/75 Pulse Oximetry 96 97 Oxygen Delivery Room Air Fraction of Inspired Oxygen 07/28/24 18:00 07/28/24 18:15 07/28/24 19:21 Temperature 36.8 C Pulse Rate 106 H 91 94 Respiratory Rate 20 Blood Pressure 120/71 Pulse Oximetry 100 Oxygen Delivery Fraction of Inspired Oxygen 07/28/24 20:00 07/28/24 21:30 07/28/24 21:59 Temperature Pulse Rate 108 H 108 H 92 Respiratory Rate Blood Pressure Pulse Oximetry 98 Oxygen Delivery Room Air Fraction of Inspired Oxygen 21 07/28/24 23:59 07/29/24 00:00 07/29/24 02:00 Temperature 36.9 C Pulse Rate 96 78 72 Respiratory Rate 18 Blood Pressure 116/66 Pulse Oximetry 87 L Oxygen Delivery Fraction of Inspired Oxygen 07/29/24 04:00 07/29/24 04:00 07/29/24 07:57 Temperature 36.9 C 36.7 C Pulse Rate 94 113 H 92 Respiratory Rate 18 16 Blood Pressure 122/82 120/70 Pulse Oximetry 99 97 Oxygen Delivery Fraction of Inspired Oxygen 07/29/24 08:00 07/29/24 08:00 07/29/24 10:00 Temperature Pulse Rate 95 93 Respiratory Rate Blood Pressure Pulse Oximetry 97 Oxygen Delivery Room Air Fraction of Inspired Oxygen Intake/Output Intake/Output: Intake & Output 07/26/24 07/27/24 07/28/24 07/29/24 23:59 23:59 23:59 23:59 Intake Total 340.0 1366.3 300 Output Total 4300 Balance -3960.0 1366.3 300 Meds/Results Medications: Active Medications Generic Name Dose Route Start Last Admin Trade Name Freanhtony PRN Reason Stop Dose Admin Acetaminophen 650 mg 07/27/24 05:39 Acetaminophen 325 Mg Tablet PO Q4H PRN Mild Pain (1-3) or Fever Apixaban 5 mg 07/27/24 21:00 07/29/24 09:38 Apixaban 5 Mg Tablet PO 5 mg Q12HR AMPARO Administration Diltiazem HCl 360 mg 07/29/24 09:00 07/29/24 09:37 Diltiazem Hcl Cd 180 Mg Cap.24hr PO 360 mg QAM AMPARO Administration Furosemide 40 mg 07/27/24 13:28 Furosemide 40 Mg Tablet PO DAILY PRN swelling Ondansetron HCl 4 mg 07/27/24 05:39 Ondansetron Inj 4 Mg/2 Ml Vial IV PUSH Q4H PRN Nausea Pantoprazole Sodium 40 mg 07/28/24 09:00 07/29/24 09:38 Pantoprazole 40 Mg Tablet PO 40 mg QAM AMPARO Administration Radiology Results: ITS Impressions Chest CTA 07/27/24 05:22 Impression: No evidence of pulmonary embolus, aortic dissection, or aortic aneurysm. Moderate bilateral pleural effusions with diffuse interstitial pulmonary edema. Chest X-Ray 07/27/24 06:21 Impression: Small pleural effusions with mild pulmonary edema pattern. Mild cardiomegaly. Labs Labs: Laboratory Results - last 24 hr 07/28/24 07/29/24 04:02 03:50 WBC 7.2 RBC 3.96 L Hgb 10.6 L Hct 34.3 L MCV 86.6 MCH 26.8 MCHC 30.9 L RDW 15.5 H Plt Count 232 MPV 11.4 H Sodium 139 Potassium 3.5 Chloride 107 Carbon Dioxide 28 Anion Gap 4 BUN 18 H Creatinine 0.73 Estim Creat Clear Calc 72 Estimated GFR > 60 Glucose 87 Hemoglobin A1c 5.1 Calcium 8.6 Total Bilirubin 0.5 AST 27 ALT 17 Alkaline Phosphatase 59 Total Protein 6.0 L Albumin 3.5 Triglycerides 62 Cholesterol 153 LDL Cholesterol Direct 65 HDL Direct 59
== END 2024-07-29 15:00 | disposition home or self-care (01) | DRG 310 ==
LOC: ANHED 07-27 05:36 → ANHIMU 07-27 06:37 → ANH2MED 07-27 18:39 → ANHIMU 07-28 12:13
PROVIDERS: Physician Assistant; Admitting Provider Family Medicine; Emergency Provider Student in an Organized Health Care Education/Training Program; Visit Provider General Practice
DX: I48.0 Paroxysmal atrial fibrillation (principal); I10 Essential (primary) hypertension; K21.9 Gastro-esophageal reflux disease without esophagitis
CPT/HCPCS: 36415; 71045; 71275; 80053; 80061; 83036; 83880; 84443; 85025; 85027; 85610; 85730; 93005; 96366; 96374; 96375; 96376; 99285; A9270; G0378; J1938; Q9967